=== PATIENT | female | born 1960 | race Caucasian/White ===

== ENCOUNTER → 2017-02-08 | Outpatient (CLI) | payer OTHER ==
[~2017-02-08] MED LIST: ALPRAZOLAM PO; CARTIA XT PO; KEFLEX PO; LORCET 10/650 T1 TAB PO; VICODIN 5/500 T1 TAB PO
--- NOTE | ~2017-02-08 | US128 ---
[id number] [facility] [address] [facility]. [place], [place] [address] [id number] O MR#: [id number] Acc #: [id number] NAME: SUHAS SMITH : 1960 SEX: F STUDY DATE/TIME: 02/08/2017 13:36 UNIT: [facility]US ROOM: STUDY DESCRIPTION: Thyroid Attending Physician: Leonel Walker M.D. Referring Physician: Leonel Walker M.D. Ordering Physician: Leonel Walker M.D. Primary Care Physician: Edison Corrigan M.D. MEDICAL IMAGING REPORT This report is preliminary unless electronic signature is present EXAM Thyroid ultrasound 02/08/2017 HISTORY Enlarged thyroid on physical examination 01/29/2017, thyroid goiter, thyroid nodules. FINDINGS The right thyroid lobe measured 5.9 cm x 2.1 cm x 2.8 cm while the left lobe measured 4.5 cm x 1.7 cm x 1.5 cm. There is a 2.8 cm x 1.7 cm x 2.5 cm solid nodule in the midportion of the right thyroid lobe and there is a 7 mm nodule in the isthmus. There is a 6 mm nodule in the mid left thyroid lobe. There are no masses extrinsic to the thyroid. Normal blood flow is seen throughout both thyroid lobes. Compared with 04/26/2016 thyroid ultrasound, the nodules are not significantly changed. IMPRESSION No change in the bilateral thyroid nodules compared with 04/26/2016. STAT * RESULT Dictated by... Dylon Espino M.D. THIS IS AN ELECTRONICALLY VERIFIED REPORT Dylon Espino M.D. at 02/16/2017 8:02 AM ALEJA/alcon TD: 02/14/2017 13:50 JOB #: [id number] MEDICAL IMAGING REPORT Page 1 of 1 COPY
== END | disposition home or self-care (01) ==
LOC: CGUS 13:11
DX: E04.9 Nontoxic goiter, unspecified (principal); E04.2 Nontoxic multinodular goiter
CPT/HCPCS: 76536